=== PATIENT | male | born 1955 ===

== ENCOUNTER 2018-10-02 11:46 | Emergency (ER) | payer OTHER ==
[2018-10-02 12:13] VITALS: RESP 18; TEMP 98.3; BMI 27.4
--- NOTE | 2018-10-02 12:44 | C.PDOC ---
History Of Present Illness 63 year old male presents to the ED complaining of left elbow and left shoulder pain for 1-2 months. States pain is worse with movement of left arm. Denies any trauma or falls. Denies taking any medications for the pain. Time Seen by Provider: 10/02/18 12:17 Chief Complaint (Nursing): Upper Extremity Problem/Injury History Per: Patient History/Exam Limitations: no limitations Onset/Duration Of Symptoms: Days (1-2 months) Current Symptoms Are (Timing): Still Present Quality: "Pain" Exacerbating Factor(s): Movement Past Medical History Reviewed: Historical Data, Nursing Documentation, Vital Signs Vital Signs: Last Vital Signs Temp 98.3 F 10/02/18 11:55 Pulse 72 10/02/18 11:55 Resp 18 10/02/18 11:55 BP 156/98 H 10/02/18 11:55 Pulse Ox 98 10/02/18 11:55 - Medical History PMH: HTN Surgical History: No Surg Hx Family History: States: No Known Family Hx - Social History Hx Alcohol Use: No Hx Substance Use: No - Immunization History Hx Tetanus Toxoid Vaccination: No Hx Influenza Vaccination: No Hx Pneumococcal Vaccination: No Review Of Systems Except As Marked, All Systems Reviewed And Found Negative. Musculoskeletal: Positive for: Arm Pain (left) Neurological: Negative for: Weakness, Numbness Physical Exam - Physical Exam Appears: Non-toxic, No Acute Distress Skin: Warm, Dry Head: Normacephalic Eye(s): bilateral: Normal Inspection Nose: Normal Oral Mucosa: Moist Extremity: Normal ROM (left arm), No Tenderness (left arm), Capillary Refill (less than 2 sec to left arm), No Deformity, No Swelling Extremity: Bilateral: Atraumatic, Normal Color And Temperature, Normal ROM Neurological/Psych: Oriented x3, Normal Speech, Normal Motor, Normal Sensation, Normal Reflexes Gait: Steady ED Course And Treatment O2 Sat by Pulse Oximetry: 98 (RA) Pulse Ox Interpretation: Normal Medical Decision Making Medical Decision Making: Patient instructed to follow up with your primary medical doctor for further evaluation. Patient given Rx for Naproxen. Advised to return to the emergency department at any time if symptoms persist or worsen. Disposition Counseled Patient/Family Regarding: Diagnosis, Need For Followup, Rx Given - Disposition Referrals: YOUR,PMD [Other] Disposition: HOME/ ROUTINE Disposition Time: 12:42 Condition: IMPROVED Prescriptions: Naproxen [Naprosyn] 1 tab PO BID PRN #25 tab PRN Reason: Pain Instructions: Lateral Epicondylitis (DC), Shoulder Sprain (DC) Forms: [employer] (Tajik) Print Language: ALGERIAN - Clinical Impression Clinical Impression: Chronic elbow pain, Chronic shoulder pain - Scribe Statement The provider has reviewed the documentation as recorded by the Scribestrella Orta All medical record entries made by the Rosanneibestrella were at my direction and personally dictated by me. I have reviewed the chart and agree that the record accurately reflects my personal performance of the history, physical exam, medical decision making, and the department course for this patient. I have also personally directed, reviewed, and agree with the discharge instructions and disposition.
[2018-10-02 13:02] VITALS: BP 186/93; PULSE 82
[2018-10-02 13:37] VITALS: O2SAT 98
== END 2018-10-02 13:02 | disposition home or self-care (01) ==
LOC: C.ER 11:46
DX: M25.522 Pain in left elbow (principal); M25.512 Pain in left shoulder; G89.29 Other chronic pain; I10 Essential (primary) hypertension